=== PATIENT | male | born 1950 | race Caucasian/White ===

== ENCOUNTER 2019-11-22 01:43 | Emergency (ER) | payer OTHER ==
[~2019-11-22] VITALS: Ht 167.6 cm; Wt 75.7 kg
[2019-11-22 02:00] VITALS: BP 152/75
--- NOTE | 2019-11-22 02:00 | NUR ---
TO BED # 02 AMBULATORY
--- NOTE | 2019-11-22 02:22 | NUR ---
69 YO MALE WITH ASTHMA CO BEING OUT OF VENTOLIN AT HOME. pT STATES THAT HE IS NOT CURRENTLY SOB, BUT DOES NOT WANT TO BE WITHOUT HIS MEDICATION AT HOME. HAS HX OF ASTHMA AND TAKES VENTOLIN AT HOME. PT IS IN BED WITH ONE SIDE RAIL UP FOR SAFETY.
[2019-11-22] MEDS ORDERED: ALBUTEROL SULFATE/IPRATROPIU 3 ML SOL IH ONE (02:30)
[2019-11-22 02:53] VITALS: BP 152/75
--- NOTE | 2019-11-22 02:53 | NUR ---
Patient discharged with v/s stable. Written and verbal after care instructions given and explained. Patient verbalized understanding. Ambulatory with steady gait. All questions addressed prior to discharge. Advised to follow up with PMD.
== END 2019-11-22 02:53 | disposition home or self-care (01) ==
LOC: MED 01:43
DX: J45.901 Unspecified asthma with (acute) exacerbation (principal); Z76.0 Encounter for issue of repeat prescription
CPT/HCPCS: 87804; 94640; 99283; J7620